=== PATIENT | male | born 1955 | race Caucasian/White ===

== ENCOUNTER → 2016-09-04 | Day surgery (SDC) | payer OTHER ==
[~2016-09-04] VITALS: Ht 175.3 cm; Wt 106.6 kg
[~2016-09-04] MED LIST: ASPIRIN325 M2 PO; CITALOPRAM; COREG; LEVOTHYROXINE; LOVASTATIN; TRAZADONE
--- NOTE | 2016-09-16 12:45 | Operative Report ---
Operative/Inv Procedure Report Surgery Date: 09/04/16 Name of Procedure: Excision skin malignancy scalp melanoma with full thickness graft closure 9 cm skin malignancy ftsg 4 cm lesion exc Pre-Operative Diagnosis: Melanoma scalp Post-Operative Diagnosis: Same Estimated Blood Loss: scant Surgeon/Business Analyst: MARIA ESTHER SALAS MD Anesthesia: moderate sedation Operative/Procedure Note Note: Patient was counseled in regards to the procedure the alternatives the risks and expected outcomes as relates to his request for surgical intervention to treat a melanoma in situ of the scalp. We talked about definite cosmetic deformity in the area following surgery the risk of recurrence need for additional surgery based on final pathology infection bleeding pain numbness as well as complications of the donor site. Patient would like to proceed. He was offered options of a flap as well. He signed informed consent after being marked. He was brought to the operative placed supine on the table. Venodyne boots were placed. Intravenous sedation and antibiotics given. The scalp and right groin prepped and draped in usual sterile fashion. Full-thickness incision around the lesion for the dimensions described above was brought down to the [facility]. Patient sent for permanent section analysis. Full-thickness graft was harvested from the right groin defatted placed in the wound and sutured with multiple layers including a tie-over bolster dressing. 2 layer closure at the right groin was carried out. End dictation
== END ==
LOC: STS 02:52
DX: D03.4 Melanoma in situ of scalp and neck (principal); I25.2 Old myocardial infarction; Z95.1 Presence of aortocoronary bypass graft; Z87.891 Personal history of nicotine dependence; Z79.82 Long term (current) use of aspirin
CPT/HCPCS: 88305; J0690; J2250